=== PATIENT | male | born 1970 | race Caucasian/White ===

== ENCOUNTER → 2017-08-29 | Outpatient (CLI) | payer BC | END | disposition home or self-care (01) | LOC: HKI 11:26 | DX: Q65.89 Other specified congenital deformities of hip (principal); M16.0 Bilateral primary osteoarthritis of hip; Z72.0 Tobacco use | CPT/HCPCS: 20610; 73522 ==

== ENCOUNTER → 2018-02-10 | Outpatient (CLI) | payer BC | END | disposition home or self-care (01) | LOC: HKI 11:24 | DX: M16.0 Bilateral primary osteoarthritis of hip (principal) | CPT/HCPCS: Z7500 ==